=== PATIENT | male | born 1970 | race Caucasian/White ===

== ENCOUNTER 2020-03-05 16:17 | Observation (INO) | payer OTHER ==
[2020-03-05] MEDS ORDERED: Lactated Ringers 1,000 ML IV SCH (16:30)
--- NOTE | 2020-03-05 16:36 | EDM.PDOC ---
ED HPI GENERAL MEDICAL PROBLEM - General Chief Complaint: Back Pain or Injury Stated Complaint: [facility] Time Seen by Provider: 03/05/20 16:25 Source of Information: Reports: Patient, EMS, RN Notes Reviewed History Limitations: Reports: No Limitations - History of Present Illness INITIAL COMMENTS - FREE TEXT/NARRATIVE: 49-year-old gentleman brought in by EMS services. He had fallen through the roof of choice onto a concrete floor estimate 10 foot height EMS services did not call a trauma code in route, as the incident did not meet criteria for trauma. He is on a backboard and does have a c-collar in place [address] He believes he initially landed on his feet and then the majority of the fall went to his low back area he then fell back and hit the back of his head. He denies any loss of consciousness he is not complaining of a headache he is complaining of low back pain no nausea vomiting no shortness of breath. Past medical history he takes no medications but has had his appendix out and has had right shoulder surgery no known drug allergies. GCS 15 through the entire interview can recall all details of the event he was at work when this happened. Lower Back Pain Score (Numeric/FACES): 10 - Related Data Allergies Allergy/AdvReac Type Severity Reaction Status Date / Time No Known Allergies Allergy Verified 03/05/20 16:30 Home Meds: Home Meds NK [No Known Home Meds] 03/05/20 [History] Past Medical History - Past Surgical History GI Surgical History: Reports: Appendectomy Musculoskeletal Surgical History: Reports: Shoulder Surgery Social & Family History - Tobacco Use Smoking Status *Q: Former Smoker Review of Systems - Review of Systems Review Of Systems: See Below Constitutional: Reports: No Symptoms Eyes: Reports: No Symptoms Ears: Reports: No Symptoms Nose: Reports: No Symptoms Mouth/Throat: Reports: No Symptoms Respiratory: Reports: No Symptoms Cardiovascular: Reports: No Symptoms GI/Abdominal: Reports: No Symptoms Genitourinary: Reports: No Symptoms Musculoskeletal: Reports: Back Pain Skin: Reports: No Symptoms Neurological: Reports: No Symptoms ED EXAM, GENERAL - Physical Exam Exam: See Below Free Text/Narrative:: Primary survey GCS 15 airways open patent and clear lungs are clear to auscultation bilaterally cardiovascular demonstrates regular rate and rhythm S1- S2 Secondary survey General: Male mild distress secondary to trauma complaining of low back pain GCS 15, alert and oriented x3 able to recall all details of the event HEENT: head is large hematoma is appreciated occipital region with laceration bleeding is controlled normocephalic, eyes pupils equal round reactive to light, sclera clear no conjunctivitis appreciated, extraocular eye movements intact. Ears tympanic membranes clear and goodrich landmarks and light reflex are present bilaterally canals are clear, . Nose no septal deviation, nares are clear, no blood present. Mouth mucosa is moist and pink no erythema or exudate noted in soft palate, tongue is midline uvula is midline, dentition is intact. Neck: Supple no thyromegaly no tracheal deviation. NO posterior midline C-spine tenderness NO evidence of intoxication GCS > 14 No focal neurological deficit NO distracting injury Nodes: Cervical nodes subclavicular nodes nontender no palpable lymphadenopathy noted. Lungs: clear to auscultation bilaterally with symmetrical respirations, no adventitious noise appreciated. CV: Regular rate and rhythm S1 and S2 appreciated no murmurs rubs or gallops noted. Abdomen: Soft, nontender, no palpable masses or organomegaly appreciated, no distention no guarding bowel sounds are present, [scars ]. Neuro: GCS 15 Skin: Warm and dry, intact, open wound on the scalp described above Extremities: No lower extremity edema appreciated, pedal pulse is +2. No tenderness shoulder elbow wrist bilaterally pelvic rocks is negative no tenderness knees ankles bilaterally examination of the back there is point tenderness in the coccyx L5 region Course - Vital Signs Last Recorded V/S: Last Vital Signs Temp 98 F 03/05/20 17:41 Pulse 96 03/05/20 17:41 Resp 16 03/05/20 17:41 BP 131/87 03/05/20 17:41 Pulse Ox 95 03/05/20 17:41 - Orders/Labs/Meds Orders: Active Orders 24 hr Category Date Time Status UA W/MICROSCOPIC [URIN] Stat Lab 03/05/20 16:26 Ordered Iopamidol [Isovue-300 (61%)] Med 03/05/20 16:45 Active 136 ml IV . DIRECTED Lactated Ringers [Ringers, Lactated] 1,000 ml Med 03/05/20 16:30 Active IV ASDIRECTED Sodium Chloride 0.9% [Normal Saline] 80 ml Med 03/05/20 16:45 Active IV ASDIRECTED Sodium Chloride 0.9% [Saline Flush] Med 03/05/20 16:40 Active 10 ml FLUSH ASDIRECTED PRN Medication Orders Lactated Ringer's (Ringers, Lactated) 1,000 mls @ 125 mls/hr IV ASDIRECTED [facility]EL Last Admin: 03/05/20 16:42 Dose: 125 mls/hr Documented by: [id number] Sodium Chloride (Normal Saline) 80 mls @ 3 mls/sec IV ASDIRECTED [facility] Last Admin: 03/05/20 17:03 Dose: 3 mls/sec Documented by: JOHNNY Iopamidol (Isovue-300 (61%)) 136 ml IV . DIRECTED [facility] Last Admin: 03/05/20 17:03 Dose: 136 ml Documented by: JOHNNY Sodium Chloride (Saline Flush) 10 ml FLUSH ASDIRECTED PRN PRN Reason: Keep Vein Open Last Admin: 03/05/20 17:03 Dose: 10 ml Documented by: JOHNNY Labs: Laboratory Tests 03/05/20 03/05/20 Range/Units 16:37 16:37 WBC 13.6 H (4.5-11.0) K/uL RBC 4.76 (4.30-5.90) M/uL Hgb 14.5 (12.0-15.0) g/dL Hct 44.0 (40.0-54.0) % MCV 92 (80-98) fL MCH 31 (27-31) pg MCHC 33 (32-36) % Plt Count 231 (150-400) K/uL Neut % (Auto) 83 H (36-66) % Lymph % (Auto) 10 L (24-44) % [place] % (Auto) 7 H (2-6) % Eos % (Auto) 0 L (2-4) % Baso % (Auto) 0 (0-1) % Sodium 143 (140-148) mmol/L Potassium 3.8 (3.6-5.2) mmol/L Chloride 106 (100-108) mmol/L Carbon Dioxide 28 (21-32) mmol/L Anion Gap 9.5 (5.0-14.0) mmol/L BUN 16 (7-18) mg/dL Creatinine 1.1 (0.8-1.3) mg/dL Est Cr Clr Drug Dosing 79.45 mL/min Estimated GFR (MDRD) > 60 (>60) Glucose 107 H (74-106) mg/dL Calcium 8.1 L (8.5-10.1) mg/dL Total Bilirubin 0.5 (0.2-1.0) mg/dL AST 34 (15-37) U/L ALT 51 (12-78) U/L Alkaline Phosphatase 84 (46-116) U/L Total Protein 6.4 (6.4-8.2) g/dL Albumin 3.7 (3.4-5.0) g/dL Globulin 2.7 (2.3-3.5) g/dL Albumin/Globulin Ratio 1.4 (1.2-2.2) Meds: Medications Generic Name Dose Route Start Last Admin Trade Name Freq PRN Reason Stop Dose Admin Lactated Ringer's 1,000 mls @ 125 mls/hr 03/05/20 16:30 03/05/20 16:42 Ringers, Lactated IV 125 mls/hr ASDIRECTED FIDEL Administration Sodium Chloride 80 mls @ 3 mls/sec 03/05/20 16:45 03/05/20 17:03 Normal Saline IV 3 mls/sec ASDIRECTED FIDEL Administration Iopamidol 136 ml 03/05/20 16:45 03/05/20 17:03 Isovue-300 (61%) IV 136 ml . DIRECTED FIEDL Administration Sodium Chloride 10 ml 03/05/20 16:40 03/05/20 17:03 Saline Flush FLUSH 10 ml ASDIRECTED PRN Administration Keep Vein Open Discontinued Medications Generic Name Dose Route Start Last Admin Trade Name Freq PRN Reason Stop Dose Admin Fentanyl 50 mcg 03/05/20 18:02 Sublimaze IVPUSH 03/05/20 18:03 ONETIME ONE Lorazepam 1 mg 03/05/20 17:16 03/05/20 17:25 Ativan IVPUSH 03/05/20 17:17 1 mg ONETIME ONE Administration Departure - Departure Time of Disposition: 18:08 Disposition: Admitted As Inpatient 64 Condition: Fair Clinical Impression: Compression fracture of T12 vertebra Qualifiers: Encounter type: initial encounter Qualified Code(s): S22.080A - Wedge compression fracture of T11-T12 vertebra, initial encounter for closed fracture Compression fracture of L2 lumbar vertebra Qualifiers: Encounter type: initial encounter Qualified Code(s): S32.020A - Wedge compression fracture of second lumbar vertebra, initial encounter for closed fracture - Discharge Information Referrals: PCP,None [Primary Care Provider] - Forms: ED Department Discharge Sepsis Event Note (ED) - Focused Exam Vital Signs: Vital Signs Temp Pulse Resp BP Pulse Ox 03/05/20 17:41 98 F 96 16 131/87 95 03/05/20 16:31 97.3 F 92 20 135/103 H 96 03/05/20 16:22 97.3 F 92 20 135/103 H 96 - My Orders Last 24 Hours: My Active Orders 03/05/20 16:26 UA W/MICROSCOPIC [URIN] Stat 03/05/20 16:30 Lactated Ringers [Ringers, Lactated] 1,000 ml IV ASDIRECTED 03/05/20 16:40 Sodium Chloride 0.9% [Saline Flush] 10 ml FLUSH ASDIRECTED PRN 03/05/20 16:45 Iopamidol [Isovue-300 (61%)] 136 ml IV . DIRECTED Sodium Chloride 0.9% [Normal Saline] 80 ml IV ASDIRECTED - Assessment/Plan Last 24 Hours: My Active Orders 03/05/20 16:26 UA W/MICROSCOPIC [URIN] Stat 03/05/20 16:30 Lactated Ringers [Ringers, Lactated] 1,000 ml IV ASDIRECTED 03/05/20 16:40 Sodium Chloride 0.9% [Saline Flush] 10 ml FLUSH ASDIRECTED PRN 03/05/20 16:45 Iopamidol [Isovue-300 (61%)] 136 ml IV . DIRECTED Sodium Chloride 0.9% [Normal Saline] 80 ml IV ASDIRECTED Plan: Assessment Acuity = acute Site and laterality = compression fractures T12, L2, head injury Etiology = secondary to trauma Manifestations = pain Location of injury = Home Lab values = WBC elevated 13.6 consistent with leukocytosis, CMP unremarkable urinalysis pending CT scan of the head shows a large scalp hematoma, CT scan of the abdomen and pelvis revealed acute fractures of T12 and L2 Plan Call discussed case with hospitalist on-call at 1800 kindly agreed to come and evaluate the patient emergency department for admission predominantly pain control did attempt to get him up however he had difficulty sitting up in bed secondary to pain This note was dictated using dragon voice recognition software please call with any questions on syntax or grammar.
[2020-03-05] MEDS ORDERED: Sodium Chloride 0.9% 10 ML Syringe FLUSH PRN (16:40)
[2020-03-05] MEDS ORDERED: Iopamidol 612 MG/ML 150 ML Bottle IV SCH (16:45)
[2020-03-05] MEDS ORDERED: Sodium Chloride 0.9% 80 ML IV SCH (16:45)
[2020-03-05] MEDS ORDERED: LORazepam 2 MG/ML SDV IVPUSH ONE (17:16)
--- NOTE | 2020-03-05 17:30 | CRLCT ---
INDICATION: Trauma, fell from approximately 10 feet, hit head. COMPARISON: None. TECHNIQUE: CT of the head without IV contrast. Coronal and sagittal reconstructions are provided. FINDINGS: No intracranial hemorrhage, mass effect, or evidence of acute infarct. No midline shift. No abnormal extra-axial fluid collections. Normal caliber ventricular system. Paranasal sinuses and mastoid air cells are clear. No acute fracture. Soft tissue hematoma overlying the vertex skull. IMPRESSION: : 1. No acute intracranial findings. 2. Soft tissue hematoma overlying the vertex skull. Please note that all CT scans at this facility use dose modulation, iterative reconstruction, and/or weight-based dosing when appropriate to reduce radiation dose to as low as reasonably achievable. Dictated by Alejandra Christopher MD @ Mar 05 2020 5:24PM Signed by Dr. Alejandra Christopher @ Mar 05 2020 5:30PM
--- NOTE | 2020-03-05 17:45 | CRLCT ---
INDICATION: Trauma, fall from approximately 10 feet, low back pain. TECHNIQUE: CT abdomen and pelvis acquired with 136 cc Omnipaque 350 IV contrast. Coronal and sagittal reconstructions. COMPARISON: None. FINDINGS: FINDINGS:There are acute appearing superior endplate compression fractures of T12 and L2 (series 4, image 63). No retropulsion. 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 Degenerative changes of the spine. Small benign cyst in the inferior right hepatic lobe. There are a few additional tiny low-attenuation lesions throughout the liver which are too small to characterize but most likely represent benign cysts or hemangiomas. Hepatic and portal veins are patent. The gallbladder, spleen, pancreas, and adrenal glands are negative. Symmetric enhancement of the kidneys. Bilateral renal cysts. Prominent right extrarenal pelvis. No hydronephrosis. No obstructing urinary calculi. The bladder and prostate are unremarkable. No bowel dilation. Colonic diverticulosis. The appendix is not identified, however there are no secondary signs of inflammation in the right lower quadrant. No intraperitoneal free air or fluid. Aortoiliac vascular calcifications. No lymphadenopathy. Bibasilar atelectasis. IMPRESSION: 1. Acute appearing superior endplate compression fractures of T12 and L2. No retropulsion. 2. No other acute findings in the abdomen or pelvis. Please note that all CT scans at this facility use dose modulation, iterative reconstruction, and/or weight-based dosing when appropriate to reduce radiation dose to as low as reasonably achievable. Dictated by Alejandra Christopher MD @ Mar 05 2020 5:30PM Signed by Dr. Alejandra Christopher @ Mar 05 2020 5:43PM
[2020-03-05] MEDS ORDERED: fentaNYL 100 MCG/2 ML SDV IVPUSH ONE (18:02)
--- NOTE | 2020-03-05 18:59 | PCM.HP.2 ---
H&P History of Present Illness - General Date of Service: 03/05/20 Admit Problem/Dx: Admission Diagnosis/Problem Admission Diagnosis/Problem Fall from one level to another Source of Information: Patient, EMS, EMS Notes Reviewed, Provider, RN History Limitations: Reports: No Limitations - History of Present Illness Initial Comments - Free Text/Narative: chief complaint: fall 49-year-old gentleman brought in by EMS services. He had fallen through the roof of choice onto a concrete floor estimate 10 foot height EMS services did not call a trauma code in route, as the incident did not meet criteria for trauma. He is on a backboard and does have a c-collar in place [address] He believes he initially landed on his feet and then the majority of the fall went to his low back area he then fell back and hit the back of his head. He denies any loss of consciousness he is not complaining of a headache he is complaining of low back pain no nausea vomiting no shortness of breath. Past medical history he takes no medications but has had his appendix out and has had right shoulder surgery no known drug allergies. GCS 15 through the entire interview can recall all details of the event he was at work when this happened. Lower Back Onset of Symptoms: Reports: Sudden Symptom Onset Date: 03/05/20 Symptom Onset Time: 14:20 Duration of Symptoms: Reports: Constant Location: Reports: Head, Back Quality: Reports: Sharp Severity: Severe Improves with: Reports: Immobilization, Medication Worsens with: Reports: Movement Context: Reports: Trauma (construction injury- fell 10 ft from floor joist to concrete pavers below. ) Associated Symptoms: Reports: Headaches, Other (backpain) Lower Back Pain Score (Numeric/FACES): 10 - Related Data Allergies/Adverse Reactions: Allergies Allergy/AdvReac Type Severity Reaction Status Date / Time No Known Allergies Allergy Verified 03/05/20 16:30 Home Medications: Home Meds NK [No Known Home Meds] 03/05/20 [History] Past Medical History - Past Surgical History GI Surgical History: Reports: Appendectomy Musculoskeletal Surgical History: Reports: Shoulder Surgery Social & Family History - Tobacco Use Smoking Status *Q: Former Smoker - Caffeine Use Caffeine Use: Reports: Coffee, Soda - Recreational Drug Use Recreational Drug Type: Reports: Marijuana/Hashish - Living Situation & Occupation Living situation: Reports: , with Family (lives with his and 2 Daughters. Employed Construction.) Occupation: Employed [employer] Review of Systems - Review of Systems: Review Of Systems: See Below General: Reports: Other (back pain) HEENT: Reports: Other (hematoma to head) Pulmonary: Reports: No Symptoms Cardiovascular: Reports: No Symptoms Gastrointestinal: Reports: Constipation (reports constipation with pain medication) Genitourinary: Reports: No Symptoms Musculoskeletal: Reports: Back Pain, Muscle Pain (back) Skin: Reports: Bruising (right abdomen -old injury), Wound (scalp hematoma), Lumps (hematoma to scalp with drainage.) Psychiatric: Reports: No Symptoms Neurological: Reports: No Symptoms Hematologic/Lymphatic: Reports: No Symptoms Immunologic: Reports: No Symptoms Exam - Exam Exam: See Below - Vital Signs Vital Signs: Last Vital Signs Temp 36.6 C 03/05/20 17:41 Pulse 96 03/05/20 17:41 Resp 16 03/05/20 17:41 BP 131/87 03/05/20 17:41 Pulse Ox 95 03/05/20 17:41 Weight: 90.718 kg - Exam Quality Assessment: DVT Prophylaxis General: Alert, Oriented, Cooperative, Mild Distress HEENT: PERRLA, EOMI, Hearing Intact, Mucosa Moist & [place] Neck: Supple, Trachea Midline Lungs: Clear to Auscultation, Normal Respiratory Effort Cardiovascular: Regular Rate, Regular Rhythm, Normal S1, Normal S2 GI/Abdominal Exam: Normal Bowel Sounds, Soft, Non-Tender (Male) Exam: Deferred Rectal (Males) Exam: Deferred Back Exam: Normal Inspection, Muscle Spasm, Paraspinal Tenderness, Vertebral Tenderness Extremities: Normal Inspection, Normal Range of Motion, Non-Tender, No Pedal Edema, Normal Capillary Refill Skin: Warm, Dry, Ecchymosis (right abdomen) Neurological: Reflexes Equal Bilateral, Strength Equal Bilateral Neuro Extensive - Mental Status: Alert, Oriented x3, Normal Mood/Affect, Normal Cognition Neuro Extensive - Motor, Sensory, Reflexes: CN II-XII Intact Psychiatric: Alert, Normal Affect, Normal Mood - Patient Data Lab Results Last 24 hrs: Laboratory Results - last 24 hr 03/05/20 03/05/20 Range/Units 16:37 16:37 WBC 13.6 H (4.5-11.0) K/uL RBC 4.76 (4.30-5.90) M/uL Hgb 14.5 (12.0-15.0) g/dL Hct 44.0 (40.0-54.0) % MCV 92 (80-98) fL MCH 31 (27-31) pg MCHC 33 (32-36) % Plt Count 231 (150-400) K/uL Neut % (Auto) 83 H (36-66) % Lymph % (Auto) 10 L (24-44) % [place] % (Auto) 7 H (2-6) % Eos % (Auto) 0 L (2-4) % Baso % (Auto) 0 (0-1) % Sodium 143 (140-148) mmol/L Potassium 3.8 (3.6-5.2) mmol/L Chloride 106 (100-108) mmol/L Carbon Dioxide 28 (21-32) mmol/L Anion Gap 9.5 (5.0-14.0) mmol/L BUN 16 (7-18) mg/dL Creatinine 1.1 (0.8-1.3) mg/dL Est Cr Clr Drug Dosing 79.45 mL/min Estimated GFR (MDRD) > 60 (>60) Glucose 107 H (74-106) mg/dL Calcium 8.1 L (8.5-10.1) mg/dL Total Bilirubin 0.5 (0.2-1.0) mg/dL AST 34 (15-37) U/L ALT 51 (12-78) U/L Alkaline Phosphatase 84 (46-116) U/L Total Protein 6.4 (6.4-8.2) g/dL Albumin 3.7 (3.4-5.0) g/dL Globulin 2.7 (2.3-3.5) g/dL Albumin/Globulin Ratio 1.4 (1.2-2.2) Result Diagrams: 03/05/20 16:37 03/05/20 16:37 Sepsis Event Note - Evaluation Sepsis Screening Result: No Definite Risk - Focused Exam Vital Signs: Vital Signs Temp Pulse Resp BP Pulse Ox 03/05/20 17:41 36.6 C 96 16 131/87 95 03/05/20 16:31 36.3 C 92 20 135/103 H 96 03/05/20 16:22 36.3 C 92 20 135/103 H 96 Date Exam was Performed: 03/05/20 Time Exam was Performed: 20:12 - Problem List (1) Compression fracture of L2 lumbar vertebra SNOMED Code(s): 56306276291982131 ICD Code: S32.020A - WEDGE COMPRESSION FRACTURE OF SECOND LUMBAR VERTEBRA, INIT Status: Acute Priority: High Current Visit: Yes Qualifiers: Encounter type: initial encounter Qualified Code(s): S32.020A - Wedge compression fracture of second lumbar vertebra, initial encounter for closed fracture (2) Compression fracture of T12 vertebra SNOMED Code(s): 566792861 ICD Code: S22.080A - WEDGE COMPRESSION FRACTURE OF T11-T12 VERTEBRA, INIT Status: Acute Priority: High Current Visit: Yes Qualifiers: Encounter type: initial encounter Qualified Code(s): S22.080A - Wedge compression fracture of T11-T12 vertebra, initial encounter for closed fracture (3) Trauma SNOMED Code(s): 125481867 ICD Code: T14.90XA - INJURY, UNSPECIFIED, INITIAL ENCOUNTER Status: Acute Priority: High Current Visit: Yes (4) Traumatic hematoma of scalp SNOMED Code(s): 782851611 ICD Code: S00.03XA - CONTUSION OF SCALP, INITIAL ENCOUNTER Status: Acute Current Visit: Yes Qualifiers: Encounter type: initial encounter Qualified Code(s): S00.03XA - Contusion of scalp, initial encounter Problem List Initiated/Reviewed/Updated: Yes Orders Last 24hrs: Active Orders 24 hr Category Date Time Status Patient Status Manage Transfer [TRANSFER] Routine ADT 03/05/20 18:48 Ordered UA W/MICROSCOPIC [URIN] Stat Lab 03/05/20 16:26 Ordered Iopamidol [Isovue-300 (61%)] Med 03/05/20 16:45 Active 136 ml IV . DIRECTED Lactated Ringers [Ringers, Lactated] 1,000 ml Med 03/05/20 16:30 Active IV ASDIRECTED Sodium Chloride 0.9% [Normal Saline] 80 ml Med 03/05/20 16:45 Active IV ASDIRECTED Sodium Chloride 0.9% [Saline Flush] Med 03/05/20 16:40 Active 10 ml FLUSH ASDIRECTED PRN Resuscitation Status Routine Resus Stat 03/05/20 18:50 Ordered Medication Orders Lactated Ringer's (Ringers, Lactated) 1,000 mls @ 125 mls/hr IV ASDIRECTED [facility] Last Admin: 03/05/20 16:42 Dose: 125 mls/hr Documented by: RUBY Sodium Chloride (Normal Saline) 80 mls @ 3 mls/sec IV ASDIRECTED [facility] Last Admin: 03/05/20 17:03 Dose: 3 mls/sec Documented by: JOHNNY Iopamidol (Isovue-300 (61%)) 136 ml IV . DIRECTED [facility] Last Admin: 03/05/20 17:03 Dose: 136 ml Documented by: JOHNNY Sodium Chloride (Saline Flush) 10 ml FLUSH ASDIRECTED PRN PRN Reason: Keep Vein Open Last Admin: 03/05/20 17:03 Dose: 10 ml Documented by: JOHNNY Assessment/Plan Comment:: ASSESSMENT AND PLAN OF CARE: TRAUMA- COMPRESSION FRACTURE OF T12 AND L2, scalp hematoma History of Present Illness 49-year-old gentleman brought in by EMS services. He had fallen through the roof of choice onto a concrete floor estimate 10 foot height EMS services did not call a trauma code in route, as the incident did not meet criteria for trauma. He is on a backboard and does have a c-collar in place [address]. He believes he initially landed on his feet and then the majority of the fall went to his low back area he then fell back and hit the back of his head. He denies any loss of consciousness he is not complaining of a headache he is complaining of low back pain no nausea vomiting no shortness of breath. Past medical history he takes no medications but has had his appendix out and has had right shoulder surgery no known drug allergies. GCS 15 through the entire interview can recall all details of the event he was at work when this happened. ER Course: Site and laterality = compression fractures T12, L2, head injury Etiology = secondary to trauma Manifestations = pain Location of injury = Home Lab values = WBC elevated 13.6 consistent with leukocytosis, CMP unremarkable urinalysis pending CT scan of the head shows a large scalp hematoma, CT scan of the abdomen and pelvis revealed acute fractures of T12 and L2 Plan Call discussed case with hospitalist on-call at 1800 kindly agreed to come and evaluate the patient emergency department for admission predominantly pain control did attempt to get him up however he had difficulty sitting up in bed secondary to pain TRAUMA- FRACTURE T12, L2. scalp hematoma. This is a 49 year old male who fell approx. 10 feet at 2:20 pm today resulting in 2 compression fractures of spine and a large scalp hematoma. He is here for pain control and increase mobility. Last Td 2017. -Telemetry -IV fluids for hydration- Normal Saline 125ml/hr -Medication for pain and nausea -medication for muscle spasm. Flexeril 10 mg. every 8 hrs as needed. -scheduled Colace 100 mg po bid for constipation prevention -Protonix 40 mg IV every day -Consult PT and OT MAINTENANCE ISSUES -DVT Prophylaxis SCD -GI prophylaxis- Protonix as above -[place] catheter not indicated -Nutrition regular diet -Sleep- Restoril 15mg po at hs. CODE STATUS FULL ADMISSION This patient will be admitted to observation status, expect no more than one night hospital stay for evaluation and management of problems outline above. DISPOSITION anticipate discharge to home after the hospital stay. PRIMARY CARE PROVIDER No Primary Care Provider HOSPITALIST Dr. Pearce - Mortality Measure Prognosis:: Good
[2020-03-05] MEDS ORDERED: oxyCODONE 5 MG Tab PO PRN (19:41)
[2020-03-05] MEDS ORDERED: Sodium Chloride 0.9% 1,000 ML IV SCH (19:41)
[2020-03-05] MEDS ORDERED: Pantoprazole 40 MG Vial IV SCH (19:41)
[2020-03-05] MEDS ORDERED: LORazepam 2 MG/ML SDV IV PRN (19:41)
[2020-03-05] MEDS ORDERED: Acetaminophen 325 MG Tab PO PRN (19:41)
[2020-03-05] MEDS ORDERED: HYDROmorphone 1 MG/ML Syringe IVPUSH PRN (19:41)
[2020-03-05] MEDS ORDERED: Ondansetron 4 MG Tab.DIS PO PRN (19:41)
[2020-03-05] MEDS: Docusate Sodium 100 MG Cap PO SCH (20:20)
[2020-03-05] MEDS: Cyclobenzaprine 10 MG Tab PO SCH (20:20)
[2020-03-05] MEDS ORDERED: Temazepam 15 MG Cap PO SCH (21:00)
[2020-03-06] MEDS: Cyclobenzaprine 10 MG Tab PO SCH ×2 (03:55→11:47)
[2020-03-06] MEDS: Ketorolac 30 MG/ML SDV IVPUSH PRN ×2 (07:19→13:31)
[2020-03-06] MEDS ORDERED: Pantoprazole 40 MG Tab.CR PO SCH (07:30)
[2020-03-06] MEDS: Docusate Sodium 100 MG Cap PO SCH (08:19)
[2020-03-06] MEDS ORDERED: oxyCODONE 5 MG Tab PO PRN (10:21)
--- NOTE | 2020-03-06 12:29 | PCM.DCSUM1 ---
Discharge Summary - Hospital Course Brief History: Healthy 49-year-old male who presented after a 12 foot fall that resulted in a scalp hematoma and back pain. He was admitted for pain control with a T12 and L2 endplate compression fracture. Diagnosis: Stroke: No - Discharge Data Discharge Date: 03/06/20 Discharge Disposition: Home, Self-Care 01 Condition: Good - Referral to Home Health Primary Care Physician: PCP None - Discharge Diagnosis/Problem(s) (1) Compression fracture of T12 vertebra SNOMED Code(s): 653041262 ICD Code: S22.080A - WEDGE COMPRESSION FRACTURE OF T11-T12 VERTEBRA, INIT Status: Acute Priority: High Qualifiers: Encounter type: initial encounter Qualified Code(s): S22.080A - Wedge compression fracture of T11-T12 vertebra, initial encounter for closed fracture (2) Compression fracture of L2 lumbar vertebra SNOMED Code(s): 20976626218351572 ICD Code: S32.020A - WEDGE COMPRESSION FRACTURE OF SECOND LUMBAR VERTEBRA, INIT Status: Acute Priority: High Qualifiers: Encounter type: initial encounter Qualified Code(s): S32.020A - Wedge compression fracture of second lumbar vertebra, initial encounter for closed fracture (3) Traumatic hematoma of scalp SNOMED Code(s): 876172348 ICD Code: S00.03XA - CONTUSION OF SCALP, INITIAL ENCOUNTER Status: Acute Qualifiers: Encounter type: initial encounter Qualified Code(s): S00.03XA - Contusion of scalp, initial encounter - Patient Summary/Data Consults: Consultations 03/05/20 19:41 OT Evaluation and Treatment [CONS] Routine Please Evaluate and Treat. OT Reason for Consult: Discharge Planning Special Instructions: fall FX T12, L2 This query below is only for informational purposes and is not editable. PT Evaluation and Treatment [CONS] Routine Please Evaluate and Treat. PT Reason for Consult: Ambulation Special Instructions: fal- fx T12, L2 This query below is only for informational purposes and is not editable. Hospital Course: Jerome presented to the emergency room by ambulance after falling about 10 to 12 feet and landing on his back and did strike his head. Work-up in the emergency room revealed a very large scalp hematoma with a small laceration. CT scan imaging showed small endplate fractures of T12 and L2. He was admitted to the hospital for pain control. Overnight following admission we had excellent pain control. He has been up and moving around and feels well. He has required minimal narcotics. He has had no difficulty with urination. Vital signs have all been stable. His scalp wound looks excellent and is no longer bleeding. He would like to go home at this time and I believe he is safe to since he has been up and walking around and tolerating his diet. I did encourage him to take it easy at least through the weekend. He will be following up with his primary care to talk about when he may be safe to return to work. I do not believe he needs any limitations at least for his activities of daily living at this time given his compression fractures involved only the endplates and are not significantly symptomatic at this time. He is young and healthy and should recover quite well from this. He will be utilizing [id number] medications for mild pain and does have oxycodone and muscle relaxers with a limited supply. - Patient Instructions Diet: Regular Diet as Tolerated Activity: As Tolerated Driving: Do Not Drive (if you are taking narcotics or muscle relaxers ) Showering/Bathing: May Shower Wound/Incision Care: Keep Operative Site/Wound Site Clean and Dry Notify Provider of: Increased Pain, Nausea and/or Vomiting Other/Special Instructions: 1. You were in the hospital for pain control following trauma that resulted in a laceration and abrasion to your posterior scalp as well as endplate compression fractures of T12 and L2. Your condition has improved with pain control provided in the hospital. I would recommend that you utilize a combination of acetaminophen and either ibuprofen or Aleve to help with mild pain. If you have moderate or severe pain you can use the oxycodone as needed. I did also provide a supply of muscle relaxers that you can use for muscle spasms in your back. You can resume your usual activities of daily living. I would recommend no heavy lifting for at least the next couple of weeks. You should follow-up with your primary care doctor next week to see how you are doing and discuss a return to work date. - Discharge Plan *PRESCRIPTION DRUG MONITORING PROGRAM REVIEWED*: Not Applicable *COPY OF PRESCRIPTION DRUG MONITORING REPORT IN PATIENT DANNY: Not Applicable Prescriptions/Med Rec: Cyclobenzaprine [Flexeril] 10 mg PO Q8H PRN #15 tablet PRN Reason: Muscle Spasm oxyCODONE 5 mg PO Q4H PRN #15 tablet PRN Reason: Pain (Moderate 4-6) Home Medications: Home Meds Cyclobenzaprine [Flexeril] 10 mg PO Q8H PRN #15 tablet 03/06/20 [Rx] oxyCODONE 5 mg PO Q4H PRN #15 tablet 03/06/20 [Rx] Oxygen Therapy Mode: Room Air Patient Handouts: Spinal Compression Fracture Referrals: PCP,None [Primary Care Provider] - (f/u with your primary care in 1 week - f/u hospital stay for endplate compression fractures of T12 and L2) - Discharge Summary/Plan Comment DC Time >30 min.: No - Patient Data Vitals - Most Recent: Last Vital Signs Temp 36.7 C 03/06/20 07:00 Pulse 70 03/06/20 07:00 Resp 14 03/06/20 07:00 BP 140/78 03/06/20 07:00 Pulse Ox 97 03/06/20 07:00 Weight - Most Recent: 90.718 kg I&O - Last 24 hours: Intake & Output 03/05/20 03/06/20 03/06/20 22:59 06:59 14:59 Intake Total 1471 1086 Balance 1471 1086 Lab Results - Last 24 hrs: Laboratory Results - last 24 hr 03/05/20 03/05/20 03/05/20 Range/Units 16:37 16:37 23:01 WBC 13.6 H (4.5-11.0) K/uL RBC 4.76 (4.30-5.90) M/uL Hgb 14.5 (12.0-15.0) g/dL Hct 44.0 (40.0-54.0) % MCV 92 (80-98) fL MCH 31 (27-31) pg MCHC 33 (32-36) % Plt Count 231 (150-400) K/uL Neut % (Auto) 83 H (36-66) % Lymph % (Auto) 10 L (24-44) % [place] % (Auto) 7 H (2-6) % Eos % (Auto) 0 L (2-4) % Baso % (Auto) 0 (0-1) % Sodium 143 (140-148) mmol/L Potassium 3.8 (3.6-5.2) mmol/L Chloride 106 (100-108) mmol/L Carbon Dioxide 28 (21-32) mmol/L Anion Gap 9.5 (5.0-14.0) mmol/L BUN 16 (7-18) mg/dL Creatinine 1.1 (0.8-1.3) mg/dL Est Cr Clr Drug Dosing 79.45 mL/min Estimated GFR (MDRD) > 60 (>60) Glucose 107 H (74-106) mg/dL Calcium 8.1 L (8.5-10.1) mg/dL Total Bilirubin 0.5 (0.2-1.0) mg/dL AST 34 (15-37) U/L ALT 51 (12-78) U/L Alkaline Phosphatase 84 (46-116) U/L Total Protein 6.4 (6.4-8.2) g/dL Albumin 3.7 (3.4-5.0) g/dL Globulin 2.7 (2.3-3.5) g/dL Albumin/Globulin Ratio 1.4 (1.2-2.2) Urine Color Yellow (YELLOW) Urine Appearance Clear (CLEAR) Urine pH 6.5 (5.0-8.0) Ur Specific [place] 1.010 (1.008-1.030) Urine Protein Negative (NEGATIVE) mg/dL Urine Glucose (UA) 100 H (NEGATIVE) mg/dL Urine Ketones Negative (NEGATIVE) mg/dL Urine Occult Blood Negative (NEGATIVE) Urine Nitrite Negative (NEGATIVE) Urine Bilirubin Negative (NEGATIVE) Urine Urobilinogen 0.2 (0.2-1.0) EU/dL Ur Leukocyte Esterase Negative (NEGATIVE) Urine RBC 0-5 (0-5) Urine WBC 0-5 (0-5) Ur Epithelial Cells Few Amorphous Sediment Not seen Urine Bacteria Few Urine Mucus Not seen 03/06/20 03/06/20 Range/Units 04:05 04:05 WBC 8.9 (4.5-11.0) K/uL RBC 4.55 (4.30-5.90) M/uL Hgb 14.0 (12.0-15.0) g/dL Hct 42.4 (40.0-54.0) % MCV 93 (80-98) fL MCH 31 (27-31) pg MCHC 33 (32-36) % Plt Count 190 (150-400) K/uL Neut % (Auto) 58 (36-66) % Lymph % (Auto) 31 (24-44) % [place] % (Auto) 10 H (2-6) % Eos % (Auto) 1 L (2-4) % Baso % (Auto) 0 (0-1) % Sodium 143 (140-148) mmol/L Potassium 3.8 (3.6-5.2) mmol/L Chloride 108 (100-108) mmol/L Carbon Dioxide 26 (21-32) mmol/L Anion Gap 8.9 (5.0-14.0) mmol/L BUN 13 (7-18) mg/dL Creatinine 0.9 (0.8-1.3) mg/dL Est Cr Clr Drug Dosing 96.78 mL/min Estimated GFR (MDRD) > 60 (>60) Glucose 95 (74-106) mg/dL Calcium 7.9 L (8.5-10.1) mg/dL Total Bilirubin (0.2-1.0) mg/dL AST (15-37) U/L ALT (12-78) U/L Alkaline Phosphatase (46-116) U/L Total Protein (6.4-8.2) g/dL Albumin (3.4-5.0) g/dL Globulin (2.3-3.5) g/dL Albumin/Globulin Ratio (1.2-2.2) Urine Color (YELLOW) Urine Appearance (CLEAR) Urine pH (5.0-8.0) Ur Specific [place] (1.008-1.030) Urine Protein (NEGATIVE) mg/dL Urine Glucose (UA) (NEGATIVE) mg/dL Urine Ketones (NEGATIVE) mg/dL Urine Occult Blood (NEGATIVE) Urine Nitrite (NEGATIVE) Urine Bilirubin (NEGATIVE) Urine Urobilinogen (0.2-1.0) EU/dL Ur Leukocyte Esterase (NEGATIVE) Urine RBC (0-5) Urine WBC (0-5) Ur Epithelial Cells Amorphous Sediment Urine Bacteria Urine Mucus Med Orders - Current: Current Medications Acetaminophen (Tylenol) 650 mg PO Q4H PRN PRN Reason: Pain (Mild 1-3)/fever Cyclobenzaprine HCl (Flexeril) 10 mg PO Q8H [facility] Last Admin: 03/06/20 11:47 Dose: 10 mg Documented by: Docusate Sodium (Colace) 100 mg PO BID [facility] Last Admin: 03/06/20 08:19 Dose: 100 mg Documented by: Hydromorphone HCl (Dilaudid) 1 mg IVPUSH Q2H PRN PRN Reason: Pain (severe 7-10) Ketorolac Tromethamine (Toradol) 30 mg IVPUSH Q6H PRN PRN Reason: Pain (moderate 4-6) Stop: 03/10/20 18:55 Last Admin: 03/06/20 07:19 Dose: 30 mg Documented by: Lorazepam (Ativan) 1 mg IV Q6H PRN PRN Reason: Nausea/Vomiting Ondansetron HCl (Zofran Odt) 4 mg PO Q6H PRN PRN Reason: Nausea able to take PO Oxycodone HCl (Oxycodone) 5 mg PO Q4H PRN PRN Reason: Pain (moderate 4-6) Pantoprazole Sodium (Protonix) 40 mg PO ACBREAKFAST [facility] Last Admin: 03/06/20 08:19 Dose: 40 mg Documented by: Temazepam (Restoril) 15 mg PO BEDTIME [facility] Last Admin: 03/05/20 20:19 Dose: 15 mg Documented by: Discontinued Medications Fentanyl (Sublimaze) 50 mcg IVPUSH ONETIME ONE Stop: 03/05/20 18:03 Last Admin: 03/05/20 18:53 Dose: 50 mcg Documented by: Lactated Ringer's (Ringers, Lactated) 1,000 mls @ 125 mls/hr IV ASDIRECTED [facility] Last Admin: 03/05/20 16:42 Dose: 125 mls/hr Documented by: Sodium Chloride (Normal Saline) 80 mls @ 3 mls/sec IV ASDIRECTED [facility] Last Admin: 03/05/20 17:03 Dose: 3 mls/sec Documented by: Sodium Chloride (Normal Saline) 1,000 mls @ 125 mls/hr IV ASDIRECTED [facility] Last Admin: 03/06/20 03:57 Dose: 125 mls/hr Documented by: Iopamidol (Isovue-300 (61%)) 136 ml IV . DIRECTED [facility] Last Admin: 03/05/20 17:03 Dose: 136 ml Documented by: Lorazepam (Ativan) 1 mg IVPUSH ONETIME ONE Stop: 03/05/20 17:17 Last Admin: 03/05/20 17:25 Dose: 1 mg Documented by: Oxycodone HCl (Oxycodone) 10 mg PO Q4H PRN PRN Reason: Pain (moderate 4-6) Last Admin: 03/05/20 22:52 Dose: 10 mg Documented by: Pantoprazole Sodium (Protonix Iv) 40 mg IV DAILY [facility] Last Admin: 03/05/20 20:19 Dose: 40 mg Documented by: Sodium Chloride (Saline Flush) 10 ml FLUSH ASDIRECTED PRN PRN Reason: Keep Vein Open Last Admin: 03/05/20 17:03 Dose: 10 ml Documented by:
== END 2020-03-06 13:45 | disposition home or self-care (01) ==
LOC: JP.ED 16:17 → JP.MS 18:48
PROVIDERS: ADMIT Internal Medicine; ATTEND Internal Medicine
DX: S32.020A Wedge compression fracture of second lumbar vertebra, initial encounter for closed fracture (principal); S22.080A Wedge compression fracture of T11-T12 vertebra, initial encounter for closed fracture; S00.03XA Contusion of scalp, initial encounter; Z87.891 Personal history of nicotine dependence; W17.89XA Other fall from one level to another, initial encounter
CPT/HCPCS: 36415; 70450; 74177; 80048; 80053; 81001; 85025; 96374; 96375; 97161; 99285; A9270; C9113; J1885; J2060; J3010; J7030; J7050; J7120; Q9967; 96361; 96376; 99217; G0378